=== PATIENT | male | born 1985 | race Caucasian/White ===

== ENCOUNTER 2024-07-19 09:58 | Emergency (ER) | payer BC, SELFPAY ==
--- OUTSIDE RECORDS SUMMARY | 2024-07-19 10:01 | XMS_ITS | Encounter Summary ---
Author Organization [facility] Address [address] [place] [id number] Care Team Providers Care Dixonac Operator Name Role Phone None, Provider Primary Care Provider Adry Olivares Primary Care Provider [phone] Encounter Details Date Type Department Care Team (Late st Contact Info) Description 01/08/2020 Prep for Procedure [facility] [address] [place] [address] Silas Michel MD [address] [place] [address] Social History Tobacco Use Types Packs/Day Years Used Date Smoking Tobacco: Never Smokeless Tobacco: Never Alcohol Use Standard Drinks/Week Comments Yes 0 (1 standard drink = 0.6 oz pur e alcohol) rare Social Connection and Isolat ion Panel [NHANES] Answer Date Recorded In a typical week, how many times do you talk on the phone with family, friends, or neighbors? More than three times a week 01/08/2020 Frequency of Social Gatherin gs with Friends and Family Not on file 01/08/2020 Attends Protestant Services Not on file 01/07 Active Member of Clubs or Organizations Not on f ile 01/08/2020 Attends Club or Organization Meetings Not on randi e 01/08/2020 Marital Status Not on file 01/08/2020 Overall Financial Resource Strain (CARDIA) Answe r Date Recorded How hard is it for you to pa y for the very basics like food, housing, medical care, and heating? Not hard at all 01/08/2020 [facility] - Occupational Stress Questionnaire Answer Date Recorded Do you feel stress - tense, restless, nervous, or anxious, or unable to sleep at night because your mind is troubled all the time - these days? Not at all 01/08/2020 Exercise Vital Sign Answer Date Recorde d On average, how many days pe r week do you engage in moderate to strenuous exercise (like a brisk walk)? 3 days 01/08/2020 On average, how many minutes do you engage in exercise at this level? 30 min 01/08/2020 Hunger Vital Sign Answer Date Recorded Within the past 12 months, y ou worried that your food would run out before you got the money to buy more. Never true 01/08/20 20 Within the past 12 months, t he food you bought just didn't last and you didn't have money to get more. Never true 01/08/2020 PRAPARE - Transportation Answer Date Re corded In the past 12 months, has l ack of transportation kept you from medical appointments or from getting medications? No 12/26 In the past 12 months, has l ack of transportation kept you from meetings, work, or from getting things needed for daily living? No 01/08/2020 Sex and Gender Information Value Date Recorded Sex Assigned at Not on file Legal Sex Male 8:41 PM CDT Gender Identity Not on file Sexual Orientation Not on file documented as of this encounter Plan of Treatment Not on file documented as of this encounter Results * PRE-SURGICAL/PRE-PROCEDURE CORONAVIRUS (COVID 19) (01/12/2020 10:24 AM CDT) CORONAVIRUS SARS COV 2 PCR (RESP) NOT DETECTED NOT DETECTED 01/14/2020 2:52 AM CDT [facility] Comment: A Not Detected (negative) test result for this test means that SARS- CoV-2 RNA was not present in the specimen above the limit of detection. A negative result does not rule out the possibility of COVID-19 and should not be used as the sole basis for treatment or patient management decisions. If COVID-19 is still suspected, based on exposure history together with other clinical findings, re-testing should be considered in consultation with public health authorities. Laboratory test results should always be considered in the context of clinical observations and epidemiological data in making a final diagnosis and patient management decisions. Please review the Fact Sheets and FDA authorized labeling available for health care providers and patients using the following websites: [email or web address].com/home/Covid-19/HCP/[employer]/fact- sheet.html [email or web address].Strut/home/Covid-19/Patients/ [employer]/fact-sheet.html This test has been authorized by the FDA under an Emergency Use Authorization (EUA) for use by authorized laboratories. Due to the current public health emergency, [facility] is receiving a high volume of samples from a wide variety of swabs and media for COVID-19 testing. In order to serve patients during this public health crisis, samples from appropriate clinical sources are being tested. Negative test results derived from specimens received in non-commercially manufactured viral collection and transport media, or in media and sample collection kits not yet authorized by FDA for COVID-19 testing should be cautiously evaluated and the patient potentially subjected to extra precautions such as additional clinical monitoring, including collection of an additional specimen. Methodology: Nucleic Acid Amplification Test (NAAT) includes PCR or TMA Additional information about COVID-19 can be found at the [facility] [employer] [facility] [employer] website: www.[employer].Strut/Covid19. Test performed at [facility] [address] [place] [address] Director: BUDDY KIRKPATRICK DO,MPH NASOPHARYNGEAL SWAB / Unknown 01/12/2020 10:24 AM CDT us Silas Michel MD MICROBIOLOGY - GENERAL JOAQUINE RYAN Final Result [facility] [id number] [place] [address] documented in this encounter Visit Diagnoses Diagnosis Pre-op testing- Primary Preoperative examination, unspecified documented in this encounter Additional Health Concerns Infection Onset Date Last Indicated Resolved Time COVID-19 Rule Out 01/12/2020 01/12/2020 01/14/2020 2:53 AM CDT documented as of this encounter Care Teams Dixonac Operator Relationship Specialty Start Date End Date None, Provider, PCP - General 04/01/18 03/30/20 Adry Dao PA PCP - General 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
--- OUTSIDE RECORDS SUMMARY | 2024-07-19 10:01 | XMS_ITS | Clinical Summary ---
Author Organization [facility] Address [facility] [place] [address] Care Team Providers Care Fiber Optics Supervisor Name Role Phone Adry Dao Primary Care Provider [phone] Allergies No known active allergies Medications HYDROcodone-wan taminophen (NORCO) 5-325 MG tabletIndicatio ns:Acute Pain < 7 Day Supply Take 1 tablet by mouth every 4 (four) hours as needed. Indications: Acute Pain < 7 Day Supply 10 tablet Active Additional Information Patient not taking.Reported on 06/12/2024 Active Problems Problem Noted Date Diagnosed Date Acute appendicitis 05/22/2024 Appendicitis 05/21/2024 Encounters Date Type Department Care Team Description 06/12/2024 3:00 PM DRYING FRAME OPERATOR Office Visit [address] [address] Delon Jaquez MD Follow Up (Pt is here for follow up from appendectomy on 05/22/2025) 06/12/2024 Travel 05/29/2024 2:30 PM DRYING FRAME OPERATOR Office Visit [address] [address] Delon Jaquez MD Follow Up (F/u from APPENDECTOMY 05/22/2025) 05/29/2024 Travel 05/22/2024 9:56 AM DRYING FRAME OPERATOR Anesthesia Event [facility] [address] [place] [address] Lydia Denny CRNA 05/22/2024 9:40 AM DRYING FRAME OPERATOR - 05/22/2024 11:27 AM [facility] Surgery [facility] Surgery [address] [place] [address] Delon Jaquez MD LAPAROSCOPIC CONVERTED TO OPEN APPENDECTOMY 05/21/2024 6:25 PM DRYING FRAME OPERATOR - 05/24/2024 11:33 AM [facility] Hospital Encounter [facility] Med/Surg [address] [place] [address] Teressa Lerma MD Sallis, Milton, MD McGowen, Payton K, MD Helmholt, Jennifer, NP Abdominal Pain Discharge Disposition: Home or Self Care (Routine Discharge) 05/21/2024 Travel from Last 3 Months Immunizations Name Administration Dates Next Due Tdap (Boostrix) 04/01/2018 Family History Medical History Relation Comments Hypertension Mother Relation Status Comments Mother Social History Tobacco Use Types Packs/Day Years Used Date Smoking Tobacco: Never Smokeless Tobacco: Never Alcohol Use Standard Drinks/Week Comments Yes 0 (1 standard drink = 0.6 oz pur e alcohol) rare [id number] Health Literacy Answer Date Recor ded How often do you need to hav e someone help you when you read instructions, pamphlets, or other written material from your doctor or pharmacy? Never 05/21/2024 [facility] Utilities Answer Date Recorded In the past 12 months has [facility] [employer], oil, or water [email or web address] threatened to shut off services in your home? No 05/21/2024 Humiliation, Afraid, Rape, and Kick questionnair e Answer Date Recorded Within the last year, have y ou been afraid of your partner or ex-partner? No 05/21/2024 Within the last year, have y ou been humiliated or emotionally abused in other ways by your partner or ex-partner? No Within the last year, have y ou been kicked, hit, slapped, or otherwise physically hurt by your partner or ex-partner? No 05/21/2024 Within the last year, have y ou been raped or forced to have any kind of sexual activity by your partner or ex-partner? No 05/21/2024 Social Connection and Isolat ion Panel [NHANES] Answer Date Recorded In a typical week, how many times do you talk on the phone with family, friends, or neighbors? Three times a week 05/21/2024 How often do you get togethe r with friends or relatives? Twice a week 05/21/2024 How often do you attend chur or islam services? More than 4 times per year 05/21/2024 Do you belong to any clubs o r organizations such as restoration groups, unions, fraternal or athletic groups, or school groups? No 05/21/2024 How often do you attend meet ings of the clubs or organizations you belong to? Never 05/21/2024 Are you , , di vorced, , never , or living with a partner? 05/21/2024 AUDIT-C Answer Date Recorded Q1: How often do you have a drink containing alc ohol? Monthly or less 05/21/2024 Q2: How many drinks containi ng alcohol do you have on a typical day when you are drinking? 1 or 2 05/21/2024 Q3: How often do you have si x or more drinks on one occasion? Never 05/21/2024 Overall Financial Resource Strain (CARDIA) Answe r Date Recorded How hard is it for you to pa y for the very basics like food, housing, medical care, and heating? Not hard at all 05/21/2024 PHQ-2 Answer Date Recorded Patient Health Questionnaire-2 Score 0 06/12/2024 [facility] - Occupational Stress Questionnaire Answer Date Recorded Do you feel stress - tense, restless, nervous, or anxious, or unable to sleep at night because your mind is troubled all the time - these days? Not at all 05/21/2024 Exercise Vital Sign Answer Date Recorde d On average, how many days pe r week do you engage in moderate to strenuous exercise (like a brisk walk)? 2 days 05/21/2024 On average, how many minutes do you engage in exercise at this level? 30 min 05/21/2024 Hunger Vital Sign Answer Date Recorded Within the past 12 months, y ou worried that your food would run out before you got the money to buy more. Never true 05/21/20 24 Within the past 12 months, t he food you bought just didn't last and you didn't have money to get more. Never true 05/21/2024 PRAPARE - Transportation Answer Date Re corded In the past 12 months, has l ack of transportation kept you from medical appointments or from getting medications? No 04/28 In the past 12 months, has l ack of transportation kept you from meetings, work, or from getting things needed for daily living? No 05/21/2024 Housing Stability Vital Sign Answer Nacho e Recorded In the last 12 months, was t here a time when you were not able to pay the mortgage or rent on time? No 05/21/2024 In the past 12 months, how m any times have you moved where you were living? 1 05/21/2024 At any time in the past 12 m [facility], were you homeless or living in a fci (including now)? No 05/21/2024 Sex and Gender Information Value Date Recorded Sex Assigned at Not on file Legal Sex Male 8:41 PM CDT Gender Identity Not on file Sexual Orientation Not on file Last Filed Vital Signs Vital Sign Reading Time Taken Comments Blood Pressure 111/71 06/12/2024 3:04 PM DRYING FRAME OPERATOR Pulse 72 06/12/2024 3:04 PM DRYING FRAME OPERATOR Temperature 37.1 C (98.8 F) 06/12/2024 3:04 PM DRYING FRAME OPERATOR Respiratory Rate 18 06/12/2024 3:04 PM DRYING FRAME OPERATOR Oxygen Saturation 97% 06/12/2024 3:04 PM DRYING FRAME OPERATOR Inhaled Oxygen Concentration - - Weight 94.2 kg (207 lb 10.8 oz) 05/24/2024 3:41 AM DRYING FRAME OPERATOR Height 177.8 cm (5' 10 ) 05/21/2024 10: 12 PM DRYING FRAME OPERATOR Body Mass Index 29.8 05/21/2024 10:12 PM DRYING FRAME OPERATOR Plan of Treatment Health Maintenance Due Date Last Done Comments Annual Physical 1988 Hepatitis C 12/31/2003 Hepatitis B Vaccines (1 of 3 - 19+ 3-dose series) 2004 COVID-19 Vaccine (2023-2 5 season) 2024 Influenza Adult (#1) 2024 DTaP, Tdap and Td Vaccines ( 2 - Td or Tdap) 04/01/2028 04/01/2018 PHQ-2 (Physician [place]) Completed 06/12/2024 HPV Vaccines Aged Out No longer eligi ble based on patient's age to complete this topic Meningococcal B Vaccine Aged Out No l onger eligible based on patient's age to complete this topic Meningococcal Vaccine Aged Out No tara gracia eligible based on patient's age to complete this topic Pneumococcal Vaccine: Pediat rics (0 to 5 Years) and At-Risk Patients (6 to 64 Years) Aged Out No longer eligi ble based on patient's age to complete this topic RSV Immunizations Under 20 Months Aged Out No longer eligible based on patient's age to complete this topic Medical Devices Implanted Type Area Rim Technician Device Identifier Shelf Expiration Date Model / Serial / Lot Floseal Hemostatic Matrix Implanted:Qty: 1 on 05/22/2024 by Delon Jaquez MD at [facility] N/A: Abdomen [employer] - BIOSCIENCE [id number] 10/21/2024 [id number] / / [id number] Procedures Procedure Name Priority Date/Time Associated Diagnosis Comments MAGNESIUM Routine 05/24/2024 6:35 AM DRYING FRAME OPERATOR BASIC METABOLIC PANEL Routine 05/24/2024 6:35 AM DRYING FRAME OPERATOR CBC W/DIFF AUTOMATED Routine 05/24/2024 6:35 AM DRYING FRAME OPERATOR MAGNESIUM Routine 05/23/2024 5:44 AM DRYING FRAME OPERATOR BASIC METABOLIC PANEL Routine 05/23/2024 5:44 AM DRYING FRAME OPERATOR CBC W/DIFF AUTOMATED Routine 05/23/2024 5:44 AM DRYING FRAME OPERATOR LAP,APPENDECTOMY 05/22/2024 9:41 AM DRYING FRAME OPERATOR Acute appendicitis with localized peritonitis, without perforation, abscess, or gangrene BASIC METABOLIC PANEL Routine 05/22/2024 6:04 AM DRYING FRAME OPERATOR CBC W/DIFF AUTOMATED Routine 05/22/2024 6:04 AM DRYING FRAME OPERATOR PATHOLOGY Routine 05/22/2024 12:00 AM DRYING FRAME OPERATOR CULTURE, BACTERIA, BLOOD STAT 05/21/2024 8:50 PM DRYING FRAME OPERATOR CULTURE, BACTERIA, BLOOD STAT 05/21/2024 8:[address] ABD+PEL W CON STAT 05/21/2024 8:03 PM DRYING FRAME OPERATOR URINALYSIS, AUTO, COMPLETE STAT 05/21/2024 6:52 PM DRYING FRAME OPERATOR LIPASE STAT 05/21/2024 6:38 PM DRYING FRAME OPERATOR COMPREHENSIVE METABOLIC PANEL STAT 05/21/2024 6:38 PM DRYING FRAME OPERATOR CBC W/DIFF AUTOMATED STAT 05/21/2024 6:38 PM DRYING FRAME OPERATOR from Last 3 Months Results * BASIC METABOLIC PANEL (05/24/2024 6:35 AM DRYING FRAME OPERATOR) Only the most recent of3 resultswithin the time period is included. GLUCOSE 98 70 - 99 MG/DL 05/24/2024 7:10 AM DRYING FRAME OPERATOR [facility] BUN 15 7 - 18 MG/DL 05/24/2024 7:10 AM [facility] CREATININE S/P/B 1.08 0.7 - 1.3 MG/DL 05/24/2024 7:10 AM [facility] SODIUM S/P/B 144 136 - 145 MMOL/L 05/24/2024 7:10 AM DRYING FRAME OPERATOR [facility] POTASSIUM S/P/B 4.1 3.5 - 5.1 MMOL/L 05/24/2024 7:10 AM [facility] CHLORIDE S/P/B 108 100 - 108 MMOL/L 05/24/2024 7:10 AM [facility] CO2 29.1 21 - 32 MMOL/L 05/24/2024 7:10 AM [facility] CALCIUM S/P/B 9.1 8.5 - 10.1 MG/DL 05/24/2024 7:10 AM [facility] ANION GAP 6.9 5 - 15 MMOL/L 05/24/2024 7:10 AM [facility] BUN CREATININE RATIO 13.9 6 - 26 05/24/2024 7:10 AM [facility] GFR ESTIMATE >90 >90 ML/MIN/1.7 3 M2 05/24/2024 7:10 AM [facility] Comment: NOTE: eGFR is not calculated for patients <18 years of age. This is an estimated GFR calculation using the new CKD EPI creatinine equation without race and so does not require a correction factor for race. This estimated GFR should not be used for calculating drug doses. 05/24/2024 6:35 AM DRYING FRAME OPERATOR us Kenya Llanes NP LABORATORY Final Resul t [facility] [address] [place] [address], * (ABNORMAL) CBC W/DIFF AUTOMATED (05/24/2024 6:35 AM DRYING FRAME OPERATOR) Only the most recent of4 resultswithin the time period is included. WBC 8.21 4.4 - 11.0 x10'3/uL 05/24/2024 7:04 AM [facility] RBC 4.75 4.50 - 5.90 x10'6/uL 05/24/2024 7:04 AM [facility] HGB 13.8(L) 14.0 - 17.5 G/DL 05/24/2024 7:04 AM [facility] HCT 39.9(L) 41.5 - 50.4 % 05/24/2024 7:04 AM [facility] MCV 84.0 80.0 - 96.0 FL 05/24/2024 7:04 AM [facility] MCH 29.1 26.5 - 31.4 PG 05/24/2024 7:04 AM [facility] MCHC 34.6 31.9 - 34.8 G/DL 05/24/2024 7:04 AM [facility] RDW 12.8 12.3 - 14.3 % 05/24/2024 7:04 AM [facility] PLT 207 151 - 353 x10'3/uL 05/24/2024 7:04 AM [facility] MPV 9.6(L) 9.7 - 11.9 FL 05/24/2024 7:04 AM [facility] RBC MORPHOLOGY NORMAL 05/24/2024 7:04 AM [facility] PLT MORPH. NORMAL 05/24/2024 7:04 AM [facility] WBC MORPHOLOGY NORMAL 05/24/2024 7:04 AM [facility] LYMPHOCYTES % 18.3 15.8 - 45.0 % 05/24/2024 7:04 AM [facility] NEUTROPHILS % 69.5 42.1 - 71.9 % 05/24/2024 7:04 AM [facility] MONOCYTES % 9.6 5.7 - 12.5 % 05/24/2024 7:04 AM [facility] EOSINOPHILS 1.3 0.0 - 5.6 % 05/24/2024 7:04 AM [facility] BASOPHILS 0.6 0.0 - 1.3 % 05/24/2024 7:04 AM [facility] ABS. NEUTROPHILS 5.70 1.40 - 6.00 x10'3/uL 05/24/2024 7:04 AM DRYING FRAME OPERATOR [facility] IMMATURE GRANS % 0.7(H) 0.0 - 0.5 % 05/24/2024 7:04 AM DRYING FRAME OPERATOR [facility] ABS. LYMPHOCYTES 1.50 0.80 - 4.70 x10'3/uL 05/24/2024 7:04 AM DRYING FRAME OPERATOR [facility] 05/24/2024 6:35 AM DRYING FRAME OPERATOR Kenya Llanes NP LABORATORY Final Resul t Performing Organization Address [facility] de Phone Number [facility] [address] [place] [address], [place] [phone] * MAGNESIUM (05/24/2024 6:35 AM DRYING FRAME OPERATOR) Only the most recent of2 resultswithin the time period is included. MAGNESIUM 2.3 1.8 - 2.4 MG/DL 05/24/2024 7:10 AM DRYING FRAME OPERATOR [facility] 05/24/2024 6:35 AM DRYING FRAME OPERATOR Kenya Llanes NP LABORATORY Final Resul t Performing Organization Address City/[facility]/ZIP Co de Phone Number [facility] [address] [place] [address], [place] [phone] * Pathology (05/22/2024 12:00 AM DRYING FRAME OPERATOR) PATHOLOGY [facility] Department of Laboratory Medicine [address] [place] [address] , extension [phone] Pathology Report Surgical Pathology Report Name: MAGNO ELLIS Specimen #: [id number] Age: 8 1985 (Age: 38) Location: [facility] Sex: M Procedure Date: 05/22/2024 [facility] #: [id number] Date Received: 05/23/2024 Date Reported: 05/26/2024 Provider: DELON JAQUEZ MD Source: Appendix Clinical History: Acute appendicitis. FINAL DIAGNOSIS: Appendix, appendectomy: -Acute appendicitis and periappendicitis . Gross Description: Received in formalin, labeled with a patient label and as appendix is a 9.5 cm long vermiform appendix with attached mesoappendix. The appendix has a diameter of 1.0 cm. The serosal surface is dusky rodriguez-calabrese with white shaggy exudate. Sections reveal that the lumen is dilated up to 0.3 cm in diameter and contains hemorrhagic material. The lumen is lined by a dusky rodriguez mucosa. No mass lesions or transmural defects are grossly identified. Program Development Manager tissue is submitted in cassette 1. Gross examination (when applicable), interpretation, and sign out were performed at [facility], [address] [place] [address]. Electronically Signed Out NIKKIE FLORES MD [facility] TISSUE APPENDIX STRUCTURE / Unknown 05/22/2024 10:33 AM DRYING FRAME OPERATOR us Delon Jaquez MD PATHOLOGY/CYTOLOGY ORDERABLES Fi nal Result [facility] [address] [place] [address], [id number] * CULTURE, BACTERIA, BLOOD (05/21/2024 8:50 PM DRYING FRAME OPERATOR) Only the most recent of2 resultswithin the time period is included. SPEC DESCRIPTION BLOOD-PEDIA TRIC VOLUME 05/21/2024 8:41 PM DRYING FRAME OPERATOR [facility] SPECIAL REQUESTS NO SPECIAL REQUEST 05/21/2024 8:41 PM DRYING FRAME OPERATOR [facility] CULTURE RESULT NO GROWTH 5 DAYS 05/26/2024 8:56 AM DRYING FRAME OPERATOR [facility] BLOOD SPECIMEN OBTAINED FOR BLOOD CULTURE / Unknown 05/21/2024 8:50 PM DRYING FRAME OPERATOR 05/21/2024 8:56 PM DRYING FRAME OPERATOR us Terry Hinson MD MICROBIOLOGY - GENERAL ORDERABL ES Final Result [facility] [address] [place] [address], [place] [phone] [facility] [address] [place] [address], [place] [phone] * CT ABD+PEL W CON (05/21/2024 8:03 PM DRYING FRAME OPERATOR) Anatomical Region Laterality Modality Abdomen Computed Tomogra phy 05/21/2024 8:16 PM DRYING FRAME OPERATOR Impressions 05/21/2024 8:24 PM DRYING FRAME OPERATOR IMPRESSION: 1. Acute appendicitis. Recommend surgical consultation. 2. No evidence of perforation or abscess. 3. Trace free fluid. 4. Cholelithiasis. 5. Other chronic or nonurgent findings as described above. Referred By: Interpreted By: Dangelo Saleh MD, 05/21/2024 8:16 PM Narrative 05/21/2024 8:24 PM DRYING FRAME OPERATOR [address] [place] [address] EXAMINATION: CT ABD+PEL W CON CLINICAL HISTORY: Abdominal pain COMPARISON: None DATE/TIME: 05/21/2024 7:46 PM TECHNIQUE: Multiplanar CT images of the abdomen and pelvis were obtained. IV contrast: uneventful intravenous administration of 90 mL Isovue 370. Oral contrast: None. A dose lowering technique was used for this procedure, which may include, but is not limited to, dose reduction technique, automated exposure control, the use of iterative reconstruction, and ALARA (As Low As Reasonably Achievable) / Image Gently techniques. FINDINGS: Calcified granuloma, right lower lobe. Liver is negative. Spleen is near the upper limits of normal size but otherwise negative. Pancreas is negative. Cholelithiasis without cholecystitis. No bile duct dilatation. Adrenal glands are negative. Kidneys are negative. Abdominal aorta is normal caliber. Retroaortic left renal vein. 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 The left common iliac vein is present, however. Bladder is impressed and not well evaluated. Prostate gland is normal size. The pancreas is enlarged at 1.2 seconds caliber with diffuse mural thickening is significant surrounding inflammatory fat stranding. Findings are consistent with acute appendicitis. Trace free pelvic fluid. No free air or abscess. No bowel obstruction. No bowel wall thickening. Appendix is located inferior to the cecum with tip near the right iliac crest. No acute osseous abnormality. Mild spondylosis. Procedure Note Dangelo Saleh MD - 05/21/2024 [facility] [address] [place] [address] EXAMINATION: CT ABD+PEL W CON CLINICAL HISTORY: Abdominal pain COMPARISON: None DATE/TIME: 05/21/2024 7:46 PM TECHNIQUE: Multiplanar CT images of the abdomen and pelvis were obtained.IV contrast: uneventful intravenous administration of 90 mL Isovue 370.Oral contrast: None. A dose lowering technique was used for this procedure, which may include,but is not limited to, dose reduction technique, automated exposurecontrol, the use of iterative reconstruction, and ALARA (As Low AsReasonably Achievable) / Image Gently techniques. FINDINGS: Calcified granuloma, right lower lobe. Liver is negative.Spleen is near the upper limits of normal size but otherwise negative.Pancreas is negative. Cholelithiasis without cholecystitis. No bile ductdilatation. Adrenal glands are negative. Kidneys are negative. Abdominal aorta isnormal caliber. Retroaortic left renal vein. 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 The leftcommon iliac vein is present, however. Bladder is impressed and not wellevaluated. Prostate gland is normal size. The pancreas is enlarged at 1.2 seconds caliber with diffuse muralthickening is significant surrounding inflammatory fat stranding.Findings are consistent with acute appendicitis. Trace free pelvic fluid.No free air or abscess. No bowel obstruction. No bowel wall thickening.Appendix is located inferior to the cecum with tip near the right iliaccrest. No acute osseous abnormality. Mild spondylosis. IMPRESSION: 1. Acute appendicitis. Recommend surgical consultation. 2. No evidence of perforation or abscess. 3. Trace free fluid. 4. Cholelithiasis. 5. Other chronic or nonurgent findings as described above. Referred By: Interpreted By: Dangelo Saleh MD, 05/21/2024 8:16 PM Terry Hinson MD CT Final Result * (ABNORMAL) URINALYSIS, AUTO, COMPLETE (05/21/2024 6:52 PM DRYING FRAME OPERATOR) COLOR (U) YELLOW 05/21/2024 7:08 PM [facility] TRANSPARENCY CLEAR 05/21/2024 7:08 PM [facility] SPECIFIC GRAVITY (U) 1.020 1.000 - 1.030 05/21/2024 7:08 PM [facility] U PH 6.5 5.0 - 9.0 05/21/2024 7:08 PM [facility] LEUKOCYTES (U) NEGATIVE NEGATIVE 05/21/2024 7:08 PM [facility] NITRITES NEGATIVE NEGATIVE 05/21/2024 7:08 PM [facility] PROTEIN RANDOM (U) NEGATIVE NEGATIVE 05/21/2024 7:08 PM [facility] GLUCOSE (U) NEGATIVE NEGATIVE 05/21/2024 7:08 PM [facility] KETONES MG/DL (U) 3+(A) NEGATIVE 05/21/2024 7:08 PM [facility] BILIRUBIN (U) NEGATIVE NEGATIVE 05/21/2024 7:08 PM [facility] BLOOD (U) NEGATIVE NEGATIVE 05/21/2024 7:08 PM DRYING FRAME OPERATOR [facility] WBC/HPF NONE SEEN 0 - 5 /HPF 05/21/2024 7:08 PM [facility] RBC/HPF 0-5 0 - 5 /HPF 05/21/2024 7:08 PM [facility] EPI/HPF RARE /HPF 05/21/2024 7:08 PM [facility] BACTERIA (U) RARE /HPF 05/21/2024 7:08 PM [facility] URINE SPECIMEN OBTAINED BY CLEAN CATCH PROCEDURE / Unknown 05/21/2024 6:52 PM DRYING FRAME OPERATOR us Teressa Lerma MD URINE ORDERABLES Final Res ult [facility] [address] [place] [address], [place] [phone] * (ABNORMAL) COMPREHENSIVE METABOLIC PANEL (05/21/2024 6:38 PM DRYING FRAME OPERATOR) GLUCOSE 121(H) 70 - 99 MG/DL 05/21/2024 7:00 PM [facility] BUN 7 7 - 18 MG/DL 05/21/2024 7:00 PM [facility] CREATININE S/P/B 1.02 0.7 - 1.3 MG/DL 05/21/2024 7:00 PM [facility] SODIUM S/P/B 139 136 - 145 MMOL/L 05/21/2024 7:00 PM [facility] POTASSIUM S/P/B 3.8 3.5 - 5.1 MMOL/L 05/21/2024 7:00 PM [facility] CHLORIDE S/P/B 102 100 - 108 MMOL/L 05/21/2024 7:00 PM [facility] CO2 27.0 21 - 32 MMOL/L 05/21/2024 7:00 PM [facility] CALCIUM S/P/B 8.9 8.5 - 10.1 MG/DL 05/21/2024 7:00 PM [facility] BILIRUBIN TOTAL S/P/B 1.1 0.2 - 1.2 MG/DL 05/21/2024 7:00 PM [facility] TOTAL PROTEIN S/P/B 7.4 6.4 - 8.2 G/DL 05/21/2024 7:00 PM [facility] ALBUMIN S/P/B 4.1 3.4 - 5.0 G/DL 05/21/2024 7:00 PM [facility] AST 19 15 - 37 U/L 05/21/2024 7:00 PM [facility] ALT 23 16 - 60 U/L 05/21/2024 7:00 PM [facility] ALKALINE PHOSPHATASE S/P/B 61 50 - 136 U/L 05/21/2024 7:00 PM [facility] ANION GAP 10.0 5 - 15 MMOL/L 05/21/2024 7:00 PM [facility] BUN CREATININE RATIO 6.9 6 - 26 05/21/2024 7:00 PM [facility] A/G RATIO 1.2 1.0 - 2.0 RATIO 05/21/2024 7:00 PM [facility] GFR ESTIMATE >90 >90 ML/MIN/1.7 3 M2 05/21/2024 7:00 PM [facility] Comment: NOTE: eGFR is not calculated for patients <18 years of age. This is an estimated GFR calculation using the new CKD EPI creatinine equation without race and so does not require a correction factor for race. This estimated GFR should not be used for calculating drug doses. 05/21/2024 6:38 PM DRYING FRAME OPERATOR Teressa Lerma MD LABORATORY Final Resu lt Performing Organization Address City/[facility]/ZIP Co de Phone Number [facility] [address] [place] [address], [place] [phone] * LIPASE (05/21/2024 6:38 PM DRYING FRAME OPERATOR) LIPASE 28 16 - 77 UNITS/L 05/21/2024 7:00 PM DRYING FRAME OPERATOR [facility] 05/21/2024 6:38 PM DRYING FRAME OPERATOR Teressa Lerma MD LABORATORY Final Resu lt Performing Organization Address City/[facility]/ZIP Co de Phone Number [facility] [address] [place] [address], [place] [phone] from Last 3 Months Insurance Advance Directives * Full Code (Latest Code Status on File) Date Activated Date Inactivated Comments 05/21/2024 10:15 PM 05/24/2024 1:33 PM Care Teams Fiber Optics Supervisor Relationship Specialty Start Date End Date Adry Dao PA PCP - General PHYSICIAN OIL EXPELLER 03/31/20
[2024-07-19 10:10] VITALS: BP 113/60; PULSE 79; RESP 18; TEMP 36.6; O2SAT 100
--- NOTE | 2024-07-19 10:22 | ED_ITS ---
HPI - Ear Problem General Chief complaint: Ear Stated complaint: ear infection Time Seen by Provider: 07/19/24 10:22 Source: patient Mode of arrival: ambulatory Limitations: no limitations History of Present Illness HPI Narrative: 38 y/o male presented for c/o nasal congestion for 3 days and woke this morning with left ear pressure. Denies ear pain, dizziness, tinnitus, cough, wheezing, n/v/d/f/c. Taking occasional Tylenol. MD Complaint: ear pain Related Data Home Medications ?Medication ?Instructions ?Recorded ?Confirmed ?Last Taken ?Type No Home Medications 05/27/24 06/04/24 Unknown History Allergies Allergy/AdvReac Type Severity Reaction Status Date / Time No Known Allergies Allergy Mild Verified 07/19/24 10:01 Review of Systems Review of Systems: CONSTITUTIONAL: Denies malaise, chills, or fever. EYES: Denies visual changes, redness, or discharge. ENT: Denies sinus pain, sore throat. Reports ear pain rhinorrhea, congestion, CARDIOVASCULAR: Denies chest pain, palpitations, or edema. RESPIRATORY: Denies cough or dyspnea. MUSCULOSKELETAL: Denies myalgia. NEUROLOGIC: Denies headache. All systems reviewed & are unremarkable except as noted in HPI and below PMFSH Surgical History Surgical History (Updated 05/26/24 @ 08:21 by Susi Tang [facility] [address]) History of appendectomy Social History Social History (Updated 06/03/24 @ 15:43 by Alexandre Tate) Social History: 05/28/24 very confident with medical forms Smoking status: Never smoker Alcohol intake: never Substance use: never Substance use type: does not use Do You Feel Safe in your Home?: Yes Lack of Transportation: No Lack of Food: Never True Current Housing: I Have Housing Concerned About Future Housing: No Difficulty Paying Gas/Electric Bills: No Difficulty Paying for Meds: No Currently Unemployed: No Education: Master's Degree or Higher Difficulty w/ Childcare or Family Care: No Living arrangements: with family Occupation/Education: occupation Gender identity (if verbalized by the patient): Male Comments At time of signature, agree with nursing past medical, surgical, social and family history. There is no relevant family history pertinent to the presenting complaint Exam Narrative: GENERAL: Well-appearing EYES: PERRLA, conjunctivae clear ENT: Nares clear. Mucous membranes moist. TMs pearly rodriguez with dull light reflex bilaterally; no tragal tenderness. Oropharynx not erythematous without lesions. NECK: Supple. No lymphadenopathy CHEST: Clear to auscultation, breath sounds equal. No wheezing, rhonchi, rales, or stridor. No respiratory distress, speaks in full sentences. HEART: Regular rate and rhythm. No murmur heard. SKIN: Warm, dry, no rash. NEURO: Alert and oriented x3. PSYCH: Normal mood and affect Course Course Emergency Course: Patient is aware of diagnosis, understands and agrees to treatment plan. Anticipatory guidance given. Patient agrees to follow-up as directed and is aware of reasons to seek care at the emergency department. Portions of this record may have been created with voice recognition software Level of Care: Express Care Visit Vital Signs Vital signs: Vital Signs Temperature 97.8 F 07/19/24 10:10 Pulse Rate 79 07/19/24 10:10 Respiratory Rate 18 07/19/24 10:10 Blood Pressure 113/60 07/19/24 10:10 Pulse Oximetry 100 07/19/24 10:10 Oxygen Delivery Room Air 07/19/24 10:10 Temperature 97.8 F 07/19/24 10:10 Pulse Rate 79 07/19/24 10:10 Respiratory Rate 18 07/19/24 10:10 Blood Pressure 113/60 07/19/24 10:10 Pulse Oximetry 100 07/19/24 10:10 Oxygen Delivery Room Air 07/19/24 10:10 Reviewed Medical Decision Making MDM Narrative Medical decision making narrative: neg flu and covid, no AOM noted on exam. Advised supportive measures and signs/symptoms to go to the ER. Patient is appropriate for outpatient treatment and follow-up. Differential Diagnosis Differential Diagnosis: Coronavirus, strep pharyngitis, allergic rhinitis, upper respiratory tract infection, sinusitis, rhinosinusitis, nasopharyngitis, viral pharyngitis, otitis media, otitis externa, eustachian tube dysfunction, foreign body, cerumen impaction. Vital Signs Vital Signs: Vital Signs Temperature 97.8 F 07/19/24 10:10 Pulse Rate 79 07/19/24 10:10 Respiratory Rate 18 07/19/24 10:10 Blood Pressure 113/60 07/19/24 10:10 Pulse Oximetry 100 07/19/24 10:10 Oxygen Delivery Room Air 07/19/24 10:10 Temperature 97.8 F 07/19/24 10:10 Pulse Rate 79 07/19/24 10:10 Respiratory Rate 18 07/19/24 10:10 Blood Pressure 113/60 07/19/24 10:10 Pulse Oximetry 100 07/19/24 10:10 Oxygen Delivery Room Air 07/19/24 10:10 Lab Data Labs: Lab Results 07/19/24 Range/Units 10:33 POC Influenza A Ag Pending POC Influenza B Ag Pending POC SARS CoV-2 Ag Negative (Negative) Discharge Plan Discharge Clinical Impression: Upper respiratory infection Patient Disposition: Home, Self-Care Condition: Stable Instructions: Antibiotic Form, Upper Respiratory Infection (ED) Additional Instructions: Recommendations; Flonase spray and Zyrtec (or Claritin/Anne) over the counter Cough syrup may cause drowsiness; avoid driving or take it at night time. Tylenol 1000mg every 8 hours as needed for pain Symptomatic treatment includes: rest, fluids, and increase humidity of the air at home. Follow up with your primary care provider in 1 week. Go to the ER for worsening symptoms or concerns. Patient Language: Thai Prescriptions: No Action No Home Medications Follow-up/Referrals: Adry Dao PA-C [Primary Care Provider] -
[2024-07-19 10:34] LABS: EDCOVIDSCREEN Negative (Negative)
[2024-07-19 10:35] LABS: EDINFLUASCREEN Negative (Negative); EDINFLUBSCREEN Negative (Negative)
== END 2024-07-19 10:47 | disposition home or self-care (01) ==
PROVIDERS: Emergency Provider Nurse Practitioner Family; PCP Physician Assistant Medical
DX: J06.9 Acute upper respiratory infection, unspecified (principal); Z20.822 Contact with and (suspected) exposure to COVID-19
CPT/HCPCS: 87426; 87804; 99212; G0463